=== PATIENT | male | born 1990 | race Caucasian/White ===

== ENCOUNTER 2016-10-19 10:50 | Emergency (ER) | payer SELFPAY ==
--- NOTE | 2016-10-19 12:26 | ER NURSING DOCUMENTATION ---
Nurse's Notes [facility] Name:Randy Bush Age:25 yrs Sex:Male :1990 Arrival Date:10/19/2016 Time:10:50 Bed1 Private MD: Diagnosis:Dental pain;Viral Upper Respiratory Infection (URI) Presentation: 10/19 11:31 Presenting complaint: Patient states: Tooth pain x 5 or 6 weeks, and is worse today. Does not have a local dentist or PCP. URI started yesterday; cough, nasal congestion. Transition of care: Home. 11:31 Acuity: PHIL 4 rs 11:31 Method Of Arrival: Walk In Triage Assessment: 11:39 General: Appears uncomfortable, well developed, well nourished, well groomed, Behavior rs is cooperative, Smells of marijuana. Pain: Complains of pain in left lower tooth Pain does not radiate. Pain currently is 8 out of 10 on a pain scale. Quality of pain is described as aching, throbbing, Pain began 5 or 6 weeks ago, and worse today. EENT: Tympanic membrane Nares with drainage noted Reports nasal congestion nasal discharge pain in tooth. EENT: Poor dentition noted. Neuro: No deficits noted. Level of Consciousness is awake, alert, Oriented to person, place, time, event. Respiratory: No deficits noted. Respiratory effort is even, unlabored, Respiratory pattern is regular, symmetrical, Breath sounds are clear bilaterally. Derm: No deficits noted. Skin is pink, warm & dry. Historical: - Allergies: No known drug Allergies; - Home Meds: 1. suboxone - PMHx: opioid addiction; - PSHx: APPENDECTOMY; - Tetanus: unknown. - Ebola Screening: : Patient negative for fever greater than or equal to 101.5 degrees Fahrenheit, and additional compatible Ebola Virus Disease symptoms. Patient denies exposure to infectious person. Patient denies travel to an Ebola-affected area in the 21 days before illness onset. No symptoms or risks identified at this time. . - Immunization history: Unable to Obtain. - Social history: Smoking status: Patient uses tobacco products, light tobacco smoker. Screenin:59 Infectious Disease Risk None. Abuse screen: Denies threats or abuse. Nutritional rs screening: No deficits noted. Assessment: 11:59 See Triage Assessment done by same RN. rs Vital Signs: 11:57 BP 134 / 87; Pulse 87; Resp 20; Temp 100.7; Pulse Ox 91% on R/A; Pain 8/10; rs ED Course: 10:54 Patient arrived in ED. lm3 11:17 Stephan Thorne MD is Attending Physician. tl1 11:30 Kristyn Ford, RN is Primary Nurse. rs 11:37 Triage completed. rs 11:40 Notified ED Physician of patient's arrival and chief complaint. Arm band placed on Bed rs in low position Call Light in Reach HOB Elevated Side rails up x1. 11:59 Resting quietly. rs 11:59 Door closed. Noise minimized. Lights dimmed. Verbal reassurance given. rs 12:25 Valuables Remains with patient. tg Administered Medications: No medications were administered Outcome: 11:35 Discharge ordered by . tl1 12:18 Discharged to home ambulatory. tg 12:18 Condition: stable 12:18 Discharge Assessment: Patient awake and alert. 12:18 Instructed on discharge instructions, follow up and referral plans. medication usage, Prescriptions given X 1. 12:25 Patient left the ED. tg Signatures: Charlie Low RN RN tg Kristyn Ford, RN RN rs Stephan Thorne MD MD tl1 Leslye Hsieh lm3
--- NOTE | 2016-10-19 12:26 | ER PHYSICIAN DOCUMENTATION ---
Physician Documentation [facility] Name:Randy Bush Age:25 yrs Sex:Male :1990 Arrival Date:10/19/2016 Time:10:50 Bed1 Private MD: Stephan Underwood Disposition: 10/19 12:30 Chart complete. tl1 Disposition: 10/19/16 11:35 Discharged to Home/Self Care. Impression: Dental pain, Viral Upper Respiratory Infection (URI). - Condition is Good. - Discharge Instructions: DENTAL PAIN, VIRAL URI Adult - URI, Viral, No Abx (Adult). - Prescriptions for PENICILLIN - take 500 milligram by ORAL route 4 times per day for 10 days; 40 milligram. - Medical Reconciliation form form. - Follow up: Private Physician; Reason: Recheck today's complaints, See a dentist. - Problem is new. - Symptoms are unchanged. - Notes: Take ibuprofen, 400 mg 4 times a day and tylenol, 1000 mg 4 times a day , together , for pain control. Try to see a dentist in the next week or so. HPI: 11:18 This 25 yrs old Male presents to ER with complaints of Toothache, Cough. tl1 11:18 The patient presents with pain, that is chronic. The problem is located in the lower tl1 left second molar. Onset: The symptom(s)/episode began/occurred gradually, 3 week(s) ago. Modifying factors: The symptoms are alleviated by nothing, the symptoms are aggravated by chewing, cold fluids, food, hot fluids. Associated signs and symptoms: Pertinent negatives: anorexia, chills, fever, inability to eat, nausea, vomiting. Severity of symptoms: At their worst the symptoms were moderate, earlier today. He also has a 2 day h/o cough, ST, rhinorrhea, w/o f/c/s/sob/wheezing/CP/hemoptysis. Historical: - Allergies: No known drug Allergies; - Home Meds: 1. suboxone - PMHx: opioid addiction; - PSHx: APPENDECTOMY; - Tetanus: unknown. - Ebola Screening: : Patient negative for fever greater than or equal to 101.5 degrees Fahrenheit, and additional compatible Ebola Virus Disease symptoms. Patient denies exposure to infectious person. Patient denies travel to an Ebola-affected area in the days before illness onset. No symptoms or risks identified at this time. . - Immunization history: Unable to Obtain. - Social history: Smoking status: Patient uses tobacco products, light tobacco smoker. ROS: 11:18 ENT: Positive for rhinorrhea, sinus congestion, sore throat, Negative for ear pain, tl1 sinus pain, difficulty swallowing, hoarseness. 11:18 All other systems are negative. Exam: 11:18 Constitutional: The patient appears in no acute distress, alert, awake, comfortable, tl1 non-toxic, well developed, well hydrated, well groomed, well nourished. 11:18 Head/face: Exam is negative for acute changes. 11:18 Eyes: Exam is negative for acute changes. 11:18 ENT: Mouth: is normal, Posterior pharynx: is normal, Dental exam: dental caries, that is moderate, specifically in the lower left second molar (#18), Voice: is normal, Breath odor: is normal. 11:18 Neck: External neck: is normal, ROM/movement: is normal. 11:18 Cardiovascular: Rate: normal, Rhythm: regular, Heart sounds: normal. 11:18 Respiratory: the patient does not display signs of respiratory distress, Respirations: normal, Breath sounds: are normal. 11:18 Abdomen/GI: Palpation: abdomen is soft and non-tender. 11:18 Skin: Exam negative for 11:18 Skin: Exam negative for acute changes. 11:18 Neuro: Exam negative for acute changes. Vital Signs: 11:57 BP 134 / 87; Pulse 87; Resp 20; Temp 100.7; Pulse Ox 91% on R/A; Pain 8/10; rs MDM: 11:17 Patient medically screened. tl1 11:30 Data reviewed: vital signs, nurses notes, and as a result, I will discharge patient. tl1 Dispensed Medications: No medications were administered Signatures: Charlie Low RN RN tg Stalker, Rachael, RN RN rs Leigh, Tom, MD MD tl1
== END 2016-10-19 12:26 | disposition home or self-care (01) ==
LOC: ER 10:50
DX: K08.89 Other specified disorders of teeth and supporting structures (principal); J06.9 Acute upper respiratory infection, unspecified; K02.9 Dental caries, unspecified; F17.210 Nicotine dependence, cigarettes, uncomplicated
CPT/HCPCS: 99282